=== PATIENT | female | born 1985 | race Caucasian/White ===

== ENCOUNTER → 2016-09-05 | Outpatient (CLI) | payer OTHER ==
[~2016-09-05] MED LIST: AMIT50TA PO; BENA25TA4 PO; E-Z-PAQUE 96% w/w SUSP 176GM BTL As Ordered ONE; EFFE75CA75 PO; GABA300C3 PO; HYDR-3719 PO; HYDR25T PO; IBUP80TA PO; IMIT50TA PO; MEDR1VL IM; MOBI15TA PO; OMEP20CA3 PO; PROZ20CA11 PO; RIBO400T PO; SERO1TAB3 PO; SING10TA32 PO; TOPA25TA10 PO; TRAM50TA2 PO; VENL150C43 PO; VITA-112 PO; ZOFR4SOL PO; [UNRECOGNIZED DRUG - CODE] PO
--- NOTE | 2016-09-05 11:01 | REP ---
Small-bowel follow-through: Transit time of barium to the terminal ileum is seen in its. There is no small bowel hypersecretion, dilatation, or mucosal abnormality. The terminal ileum is evaluated with fluoroscopy and spot filming. The terminal ileum has a normal mucosal pattern. No evidence of luminal narrowing or wall thickening. There are no fistulous tracts. Impression: Normal small bowel follow-through study. If symptomatology persists, consider a followup study in 6 months to a year. Fluoroscopic exposure time is 48 seconds. Fluoroscopic images are performed with last image hold technology resulting in no additional radiation. Signed by Sulaiman Kingsley MD 09/05/2016 10:52 A
== END ==
LOC: M RAD 08:20
PROVIDERS: ATTEND Internal Medicine Gastroenterology
DX: R93.3 Abnormal findings on diagnostic imaging of other parts of digestive tract (principal)

== ENCOUNTER → 2016-12-24 | Outpatient (REF) ==
[~2016-12-24] MED LIST changes: +BENT10CA PO; -E-Z-PAQUE 96% w/w SUSP 176GM BTL As Ordered ONE; +GABA-282 PO; -GABA300C3 PO
== END ==
LOC: M SMT 14:21
PROVIDERS: ATTEND Internal Medicine
DX: Z02.71 Encounter for disability determination (principal)

== ENCOUNTER → 2016-12-24 | Outpatient (REF) ==
--- NOTE | 2016-12-24 22:48 | REP ---
Clinical: Pain and disability. Technique: AP, lateral, coned-down views of the lumbar spine. Findings: Three views of the lumbosacral spine demonstrate satisfactory alignment and lordosis without acute fracture / compression injury or subluxation. Minimal endplate sclerosis and disc space narrowing at L5-S1 cannot be excluded. Impression: Minimal disc space narrowing and L5-S1. No acute fracture / compression injury or subluxation. Signed by George Perez MD 12/24/2016 10:39 P
== END ==
LOC: M SMT 14:24
PROVIDERS: ATTEND Internal Medicine
DX: Z02.71 Encounter for disability determination (principal)

== ENCOUNTER 2017-06-21 15:10 | Emergency (ER) | payer MEDICAID, OTHER ==
[~2017-06-21] VITALS: Ht 157.5 cm; Wt 81.8 kg
[2017-06-21 15:10] VITALS: BP 142/77
[~2017-06-21 15:10] MED LIST changes: +HYDR-3363 PO; -HYDR25T PO; +MUCI1TAB16 PO; +TOPA1TAB PO; -TOPA25TA10 PO; -[UNRECOGNIZED DRUG - CODE] PO
[2017-06-21] MEDS ORDERED: TRAZO50TA FT (15:21)
[2017-06-21] MEDS ORDERED: CLAR10CA3 PO (15:21)
[2017-06-21] MEDS ORDERED: DEPA1TAB PO (15:21)
[2017-06-21] MEDS ORDERED: BACT2OIN10 TOP (16:07)
== END 2017-06-21 16:16 | disposition home or self-care (01) ==
LOC: M ED 15:10
DX: L01.00 Impetigo, unspecified (principal); J45.909 Unspecified asthma, uncomplicated; E03.9 Hypothyroidism, unspecified; F32.9 Major depressive disorder, single episode, unspecified; K21.9 Gastro-esophageal reflux disease without esophagitis; M79.7 Fibromyalgia; G43.909 Migraine, unspecified, not intractable, without status migrainosus; K58.9 Irritable bowel syndrome, unspecified; Z79.899 Other long term (current) drug therapy; Z88.8 Allergy status to other drugs, medicaments and biological substances

== ENCOUNTER → 2017-08-28 | Outpatient (REF) | payer OTHER ==
[2017-08-28 17:49] LABS: INFLUENZA A AMPLIFICATION NEGATIVE (NEGATIVE); INFLUENZA B AMPLIFICATION NEGATIVE (NEGATIVE); RSV AMPLIFICATION NEGATIVE (NEGATIVE)
== END ==
LOC: M LAB REF 16:33
DX: R68.89 Other general symptoms and signs (principal)
CPT/HCPCS: 87631

== ENCOUNTER 2017-09-08 20:12 | Emergency (ER) | payer OTHER ==
[2017-09-08] MEDS: NORCO 5/325MG TABLET (BULK FOR ED) PO (23:04)
[2017-09-08] MEDS: AMOXICILLIN 500 MG CAP PO (23:05)
== END 2017-09-08 23:08 | disposition home or self-care (01) ==
LOC: M ED 20:12
DX: H66.92 Otitis media, unspecified, left ear (principal); J45.909 Unspecified asthma, uncomplicated; E03.9 Hypothyroidism, unspecified; F32.9 Major depressive disorder, single episode, unspecified; Z88.8 Allergy status to other drugs, medicaments and biological substances; Z79.899 Other long term (current) drug therapy
CPT/HCPCS: 99283

== ENCOUNTER 2017-09-29 13:55 | Emergency (ER) | payer OTHER | END 2017-09-29 15:41 | disposition left against medical advice (07) | LOC: M ED 13:55 | DX: M79.609 Pain in unspecified limb (principal); Z53.21 Procedure and treatment not carried out due to patient leaving prior to being seen by health care provider ==

== ENCOUNTER → 2017-12-24 | Outpatient (CLI) | payer OTHER | LOC: M PAIN 15:30 | DX: G89.29 Other chronic pain (principal); G54.6 Phantom limb syndrome with pain; M79.642 Pain in left hand; F31.9 Bipolar disorder, unspecified; F41.9 Anxiety disorder, unspecified; K21.9 Gastro-esophageal reflux disease without esophagitis; M19.90 Unspecified osteoarthritis, unspecified site; J30.2 Other seasonal allergic rhinitis; G43.909 Migraine, unspecified, not intractable, without status migrainosus; M79.7 Fibromyalgia; K58.9 Irritable bowel syndrome, unspecified; Z87.891 Personal history of nicotine dependence; Z79.891 Long term (current) use of opiate analgesic; Z79.899 Other long term (current) drug therapy | CPT/HCPCS: G0463 ==

== ENCOUNTER 2018-01-12 16:23 | Emergency (ER) | payer OTHER ==
[2018-01-12] MEDS: PROMETHAZINE INJ 25 MG/ML VIAL (J2550) IV (17:19)
[2018-01-12] MEDS: NORCO, ANEXSIA 5/325MG TABLET (HYDROcodone/ACETAMINOPHEN) PO (17:54)
== END 2018-01-12 19:00 | disposition home or self-care (01) ==
LOC: M ED 16:23
DX: S93.402A Sprain of unspecified ligament of left ankle, initial encounter (principal); S30.0XXA Contusion of lower back and pelvis, initial encounter; W10.9XXA Fall (on) (from) unspecified stairs and steps, initial encounter; Y92.099 Unspecified place in other non-institutional residence as the place of occurrence of the external cause; Y93.9 Activity, unspecified; Y99.9 Unspecified external cause status; J45.909 Unspecified asthma, uncomplicated; M79.7 Fibromyalgia; K21.9 Gastro-esophageal reflux disease without esophagitis; Z79.899 Other long term (current) drug therapy; Z88.8 Allergy status to other drugs, medicaments and biological substances
CPT/HCPCS: 72110

== ENCOUNTER → 2018-02-17 | Outpatient (REF) | payer OTHER ==
[2018-02-17 22:01] LABS: APPEARANCE, URINE CLOUDY (CLEAR); BACTERIA, URINE AUTO 1+ (NEGATIVE); BILIRUBIN, URINE AUTO NEGATIVE (NEGATIVE); BLOOD, URINE BLOOD NEGATIVE (NEGATIVE); COLOR, URINE AMBER (YELLOW); GLUCOSE, URINE (UA) AUTO NEGATIVE (NEGATIVE); KETONE, URINE AUTO NEGATIVE (NEGATIVE); LEUKOCYTE ESTERASE, URINE AUTO NEGATIVE (NEGATIVE); NITRITE, URINE AUTO NEGATIVE (NEGATIVE); PROTEIN, URINE AUTO NEGATIVE (NEGATIVE); RBC, URINE AUTO 2 /HPF (0-3); SPECIFIC GRAVITY URINE AUTO 1.018 (1.002-1.035); SQUAMOUS EPITHELIAL CELL UR AU 1 /HPF (0-6); UROBILINOGEN, URINE AUTO 0.2 mg/dL (0.0-2.0); WBC, URINE AUTO 1 /HPF (0-3)
== END ==
LOC: M LAB REF 09:08
DX: N39.0 Urinary tract infection, site not specified (principal)
CPT/HCPCS: 81001

== ENCOUNTER → 2018-02-19 | Outpatient (CLI) | payer OTHER ==
[2018-02-19 17:05] LABS: ALBUMIN 4.1 GM/DL (3.2-5.2); ALBUMIN/GLOBULIN RATIO 1.17 (1.00-1.93); ALKALINE PHOSPHATASE 67 U/L (45-117); ALT/SGPT 23 U/L (12-78); ANION GAP 7 MEQ/L (8-16); AST/SGOT 9 U/L (7-37); BILIRUBIN,TOTAL 0.2 MG/DL (0.2-1.0); BLOOD UREA NITROGEN 5 MG/DL (7-18); CALCIUM LEVEL 9.2 MG/DL (8.5-10.1); CARBON DIOXIDE LEVEL 26 MEQ/L (21-32); CHLORIDE LEVEL 108 MEQ/L (98-107); CREATININE FOR GFR 1.08 MG/DL (0.55-1.30); FREE T4 0.82 NG/DL (0.76-1.46); GLOMERULAR FILTRATION RATE > 60.0 (>60); GLUCOSE, FASTING 74 MG/DL (70-100); POTASSIUM SERUM 4.8 MEQ/L (3.5-5.1); SODIUM LEVEL 141 MEQ/L (136-145); TOTAL PROTEIN 7.6 GM/DL (6.4-8.2)
[2018-02-19 17:11] LABS: BASO # 0.1 10^3/uL (0.0-0.2); BASO % 0.5 % (0.0-1.0); EOS # 0.1 10^3/uL (0.0-0.50); EOS % 0.9 % (0.0-3.0); HEMATOCRIT 42.5 % (36.0-47.0); HEMOGLOBIN 13.8 g/dl (12.0-15.5); IMMATURE GRANULOCYTE % 0.6 % (0-3.0); LYMPH # 3.6 10^3/uL (1.5-4.5); LYMPH % 35.4 % (24.0-44.0); MEAN CORPUSCULAR HEMOGLOBIN 27.3 pg (27.0-33.0); MEAN CORPUSCULAR HGB CONC 32.5 g/dl (32.0-36.5); MONO # 0.6 10^3/uL (0.0-0.8); MONO % 6.3 % (0.0-5.0); NEUTROPHILS # 5.7 10^3/uL (1.8-7.7); NEUTROPHILS % 56.3 % (36.0-66.0); PLATELET COUNT, AUTOMATED 282 10^3/uL (150-450); RED BLOOD COUNT 5.06 10^6/uL (4.00-5.40); RED CELL DISTRIBUTION WIDTH 13.6 % (11.5-14.5); WHITE BLOOD COUNT 10.1 10^3/uL (4.0-10.0)
[2018-02-23 00:09] LABS: EBV AB TO NUCLEAR ANTIGEN <18.0 U/mL (0.0-17.9)
[2018-02-23 00:09] LABS: EBV VIRAL CAPSID AG IgM <36.0 U/mL (0.0-35.9)
== END ==
LOC: M WUC 14:09
DX: J02.9 Acute pharyngitis, unspecified (principal); M79.1 Myalgia
CPT/HCPCS: 84443

== ENCOUNTER 2018-04-29 20:32 | Inpatient (IN) | payer MEDICAID, OTHER, SELFPAY ==
[2018-04-29] MEDS: NS 1,000 ML IV (21:15)
[2018-04-29 21:25] LABS: OSMOLALITY SERUM 291 MOSM/KG (275-295)
[2018-04-29 21:36] LABS: ACETAMINOPHEN LEVEL < 2.0 UG/ML (10.0-30.0); ETHYL ALCOHOL (ETHANOL) 0.004 % (0.000-0.010)
[2018-04-29] MEDS: MORPHINE 2 MG/ML 1ML SYRINGE (J2270) IV (21:59)
[2018-04-29 22:03] LABS: BASO % 0.3 % (0.0-1.0); EOS # 0.1 10^3/uL (0.0-0.50); EOS % 0.8 % (0.0-3.0); HEMATOCRIT 44.4 % (36.0-47.0); HEMOGLOBIN 14.8 g/dl (12.0-15.5); LYMPH # 2.4 10^3/uL (1.5-4.5); LYMPH % 20.5 % (24.0-44.0); MEAN CORPUSCULAR HEMOGLOBIN 27.7 pg (27.0-33.0); MEAN CORPUSCULAR HGB CONC 33.3 g/dl (32.0-36.5); MEAN CORPUSCULAR VOLUME 83.1 fl (80.0-96.0); MONO # 0.5 10^3/uL (0.0-0.8); MONO % 4.6 % (0.0-5.0); NEUTROPHILS # 8.5 10^3/uL (1.8-7.7); NEUTROPHILS % 72.8 % (36.0-66.0); PLATELET COUNT, AUTOMATED 243 10^3/uL (150-450); RED BLOOD COUNT 5.34 10^6/uL (4.00-5.40); RED CELL DISTRIBUTION WIDTH 15.3 % (11.5-14.5); WHITE BLOOD COUNT 11.6 10^3/uL (4.0-10.0)
[2018-04-29 22:07] LABS: CONTROL LINE HCG INT CTR LINE PRESENT; HCG, SERUM QUALITATIVE NEGATIVE (NEGATIVE); INR 0.94; PROTHROMBIN TIME 12.7 SECONDS (12.1-14.4)
[2018-04-29 22:08] LABS: PARTIAL THROMBOPLASTIN TIME 31.5 SECONDS (25.4-37.6)
[2018-04-29 22:09] LABS: KETONE, URINE AUTO RFX TRACE mg/dL (NEGATIVE); LEUKOCYTE ESTERASE UR AUTO RFX NEGATIVE (NEGATIVE); NITRITE, URINE AUTO RFX NEGATIVE (NEGATIVE); RBC, URINE AUTO RFX 2 /HPF (0-3); SPECIFIC GRAVITY UR AUTO RFX 1.008 (1.002-1.035); SQUAM EPITHELIAL CELL UR AURFX 0 /HPF (0-6); WBC, URINE AUTO RFX 0 /HPF (0-3)
[2018-04-29 22:26] LABS: ALBUMIN 4.3 GM/DL (3.2-5.2); ALKALINE PHOSPHATASE 80 U/L (45-117); ALT/SGPT 27 U/L (12-78); AMYLASE 45 U/L (25-115); ANION GAP 10 MEQ/L (8-16); AST/SGOT 14 U/L (7-37); BILIRUBIN,DIRECT < 0.1 MG/DL (0.0-0.2); BILIRUBIN,TOTAL 0.2 MG/DL (0.2-1.0); BLOOD UREA NITROGEN 6 MG/DL (7-18); CARBON DIOXIDE LEVEL 25 MEQ/L (21-32); CHLORIDE LEVEL 107 MEQ/L (98-107); CK-MB VALUE MASS < 1.0 NG/ML (<3.6); CPK CREATINE PHOSPHOKINASE 80 U/L (26-192); CREATININE FOR GFR 0.94 MG/DL (0.55-1.30); GLOMERULAR FILTRATION RATE > 60.0 (>60); GLUCOSE, FASTING 81 MG/DL (70-100); LIPASE 183 U/L (73-393); MB/CK RELATIVE INDEX 1.25 (< OR =4); POTASSIUM SERUM 3.8 MEQ/L (3.5-5.1); SODIUM LEVEL 142 MEQ/L (136-145); TOTAL PROTEIN 7.6 GM/DL (6.4-8.2); TROPONIN I < 0.02 NG/ML (< 0.10)
[2018-04-29 22:33] LABS: AMPHETAMINES LEVEL URINE NEGATIVE (NEGATIVE); BARBITURATES URINE NEGATIVE (NEGATIVE); BENZODIAZEPINES URINE NEGATIVE (NEGATIVE); CANNABINOIDS URINE NEGATIVE (NEGATIVE); COCAINE METABOLITE URINE NEGATIVE (NEGATIVE); METHADONE URINE NEGATIVE (NEGATIVE); OPIATES URINE NEGATIVE (NEGATIVE); PHENCYCLIDINE URINE NEGATIVE (NEGATIVE)
[2018-04-29] MEDS ORDERED: ISOVUE-370 76% 100ML VIAL (Q9967) As Ordered (22:33)
[2018-04-29 22:35] LABS: LACTIC ACID SEPSIS PROTOCOL 1.1 MMOL/L (0.4-2.0)
[2018-04-30] MEDS: KETOROLAC 30 MG/ML VIAL (J1885) IV
[2018-04-30] MEDS ORDERED: MAALOX 30 ML SUSP *UDC PO (02:45)
[2018-04-30] MEDS ORDERED: diphenhydrAMINE 50 MG CAP PO (02:45)
[2018-04-30] MEDS ORDERED: MOM 30ML SUSPENSION UDC PO (02:45)
[2018-04-30] MEDS: NICOTINE 21MG/24HR 1 EA TRANSDERMAL TD (08:08)
[2018-04-30] MEDS ORDERED: NORCO, ANEXSIA 5/325MG TABLET (HYDROcodone/ACETAMINOPHEN) PO (11:30)
[2018-04-30] MEDS ORDERED: ALBUTEROL 90 MCG/ACT 8GM HFA INHALER INH (11:30)
[2018-04-30] MEDS: OMEPRAZOLE 20 MG CAP PO ×2 (12:52→21:37)
[2018-04-30] MEDS: busPIRone 5 MG TAB PO ×2 (13:23→21:37)
[2018-04-30] MEDS: VENLAFAXINE **XR** 75MG CAPSULE PO (13:23)
[2018-04-30] MEDS: GABAPENTIN 300 MG CAP PO ×2 (16:12→21:37)
[2018-04-30] MEDS ORDERED: LURASIDONE HCL 40 MG TAB (LATUDA) PO ×2 (18:00→21:00)
[2018-04-30] MEDS: MONTELUKAST 10 MG TAB PO (21:35)
[2018-04-30] MEDS: LURASIDONE HCL 40 MG TAB (LATUDA) PO (21:36)
[2018-04-30] MEDS: hydrOXYzine 50 MG TAB PO (21:36)
[2018-04-30] MEDS: traZODone 50 MG TAB PO (21:37)
[2018-05-01 07:50] LABS: HEMATOCRIT 40.4 % (36.0-47.0); HEMOGLOBIN 13.4 g/dl (12.0-15.5); MEAN CORPUSCULAR HEMOGLOBIN 27.2 pg (27.0-33.0); MEAN CORPUSCULAR HGB CONC 33.2 g/dl (32.0-36.5); MEAN CORPUSCULAR VOLUME 81.9 fl (80.0-96.0); PLATELET COUNT, AUTOMATED 218 10^3/uL (150-450); RED BLOOD COUNT 4.93 10^6/uL (4.00-5.40); RED CELL DISTRIBUTION WIDTH 15.3 % (11.5-14.5); WHITE BLOOD COUNT 10.1 10^3/uL (4.0-10.0)
[2018-05-01] MEDS: NICOTINE 21MG/24HR 1 EA TRANSDERMAL TD (08:11)
[2018-05-01] MEDS: VENLAFAXINE **XR** 75MG CAPSULE PO (08:12)
[2018-05-01] MEDS: busPIRone 5 MG TAB PO ×2 (08:12→21:00)
[2018-05-01] MEDS: GABAPENTIN 300 MG CAP PO ×3 (08:12→21:00)
[2018-05-01] MEDS: OMEPRAZOLE 20 MG CAP PO ×2 (08:12→21:00)
[2018-05-01] MEDS: MONTELUKAST 10 MG TAB PO (21:00)
[2018-05-01] MEDS: hydrOXYzine 50 MG TAB PO (22:50)
[2018-05-01] MEDS: traZODone 50 MG TAB PO (22:50)
[2018-05-01] MEDS: LURASIDONE HCL 40 MG TAB (LATUDA) PO (22:51)
[2018-05-02] MEDS: VENLAFAXINE **XR** 75MG CAPSULE PO (08:06)
[2018-05-02] MEDS: GABAPENTIN 300 MG CAP PO ×3 (08:06→20:46)
[2018-05-02] MEDS: NICOTINE 21MG/24HR 1 EA TRANSDERMAL TD (08:06)
[2018-05-02] MEDS: busPIRone 5 MG TAB PO ×2 (08:06→20:46)
[2018-05-02] MEDS: OMEPRAZOLE 20 MG CAP PO ×2 (08:07→20:46)
[2018-05-02] MEDS: IBUPROFEN 400 MG TAB PO (12:00)
[2018-05-02] MEDS: ACETAMINOPHEN TAB 650MG DOSE (2X325MG) PO (15:48)
[2018-05-02] MEDS: MONTELUKAST 10 MG TAB PO (20:46)
[2018-05-02] MEDS: traZODone 50 MG TAB PO (22:34)
[2018-05-02] MEDS: LURASIDONE HCL 40 MG TAB (LATUDA) PO (22:34)
[2018-05-02] MEDS: hydrOXYzine 50 MG TAB PO (22:34)
[2018-05-03] MEDS: NICOTINE 21MG/24HR 1 EA TRANSDERMAL TD (08:44)
[2018-05-03] MEDS: busPIRone 5 MG TAB PO (08:45)
[2018-05-03] MEDS: VENLAFAXINE **XR** 75MG CAPSULE PO (08:45)
[2018-05-03] MEDS: OMEPRAZOLE 20 MG CAP PO (08:45)
[2018-05-03] MEDS: GABAPENTIN 300 MG CAP PO (08:46)
== END 2018-05-03 14:45 | disposition home or self-care (01) | DRG 753 ==
LOC: M PSY 05-02 23:18 → M ED INP 04-30 02:33 → M ED 20:32 → M PSY 04-30 03:39
PROVIDERS: Psychiatry & Neurology Psychiatry
DX: F31.9 Bipolar disorder, unspecified (principal); E27.8 Other specified disorders of adrenal gland; R45.851 Suicidal ideations; F43.10 Post-traumatic stress disorder, unspecified; F41.1 Generalized anxiety disorder; Z79.899 Other long term (current) drug therapy; Z88.8 Allergy status to other drugs, medicaments and biological substances; K21.9 Gastro-esophageal reflux disease without esophagitis; G47.33 Obstructive sleep apnea (adult) (pediatric); J45.909 Unspecified asthma, uncomplicated; G89.29 Other chronic pain; M79.7 Fibromyalgia; F17.200 Nicotine dependence, unspecified, uncomplicated; D72.829 Elevated white blood cell count, unspecified

== ENCOUNTER 2018-05-05 09:23 | Emergency (ER) | payer MEDICAID | END 2018-05-05 11:07 | disposition home or self-care (01) | LOC: M ED 09:23 | DX: J45.909 Unspecified asthma, uncomplicated (principal); J20.9 Acute bronchitis, unspecified; K21.9 Gastro-esophageal reflux disease without esophagitis; F31.9 Bipolar disorder, unspecified; F41.9 Anxiety disorder, unspecified; F43.10 Post-traumatic stress disorder, unspecified; Z79.899 Other long term (current) drug therapy; Z79.3 Long term (current) use of hormonal contraceptives; Z88.5 Allergy status to narcotic agent; F17.210 Nicotine dependence, cigarettes, uncomplicated | CPT/HCPCS: 99283 ==

== ENCOUNTER 2018-07-14 09:44 | Emergency (ER) | payer OTHER, MEDICAID ==
[~2018-07-14] VITALS: Ht 160 cm; Wt 81.8 kg
[~2018-07-14 09:44] MED LIST changes: +AMOX875T PO; +BACT2OIN10 TOP; +BUSP15TA47 PO; +CLAR10CA3 PO; +DEPA1TAB PO; +DEPO150I IM; +EFFE75CA2 PO; -EFFE75CA75 PO; +EXCETAB49 PO; +GABA-1171 PO; -GABA-282 PO; +GABA-843 PO; +GABA-845 PO; +HYDR-3713 PO; +IBUPOTC PO; +LATU1TAB PO; +LATU40TA PO; +LATU80TA PO; +MONT10TA2 PO; +NICO21PAT TD; +NORC1TAB4 PO; +NORCOTAB PO; +OXYC1TAB23 PO; +TRAZ-160 PO; +TRAZO50TA FT; +VENL100T PO; +VENL75CA2 PO; +VENTAER INH; +VITA100T98 PO
[2018-07-14] MEDS ORDERED: ZIPR20CA13 (09:57)
[2018-07-14] MEDS ORDERED: HYDR-3713 (09:57)
[2018-07-14] MEDS ORDERED: KETOROLAC 30 MG/ML VIAL (J1885) IV ONE (10:30)
[2018-07-14] MEDS ORDERED: METOCLOPRAMIDE INJ 10MG/2ML VIAL (J2765) IV ONE (10:30)
[2018-07-14] MEDS ORDERED: NS 1,000 ML IV ONE (10:30)
--- NOTE | 2018-07-14 10:42 | REP ---
Chest two views HISTORY: Abdominal pain Comparison: 12/08/2013 The lungs are clear. The heart is normal in size. The pulmonary vasculature is normal in appearance. The bony structure is intact. IMPRESSION: No acute disease. Electronically Signed by Kj Ceballos MD 07/14/2018 10:34 A
[2018-07-14 10:43] LABS: BASO % 0.4 % (0.0-1.0); EOS # 0.1 10^3/uL (0.0-0.50); EOS % 0.5 % (0.0-3.0); HEMATOCRIT 45.5 % (36.0-47.0); HEMOGLOBIN 15.2 g/dl (12.0-15.5); LYMPH % 28.3 % (24.0-44.0); MEAN CORPUSCULAR HEMOGLOBIN 28.8 pg (27.0-33.0); MEAN CORPUSCULAR HGB CONC 33.4 g/dl (32.0-36.5); MEAN CORPUSCULAR VOLUME 86.3 fl (80.0-96.0); MONO # 0.5 10^3/uL (0.0-0.8); MONO % 4.5 % (0.0-5.0); NEUTROPHILS % 65.7 % (36.0-66.0); PLATELET COUNT, AUTOMATED 264 10^3/uL (150-450); RED BLOOD COUNT 5.27 10^6/uL (4.00-5.40); WHITE BLOOD COUNT 10.6 10^3/uL (4.0-10.0)
[2018-07-14 11:50] VITALS: BP 120/74
[2018-07-14 12:00] LABS: BLOOD UREA NITROGEN 7 MG/DL (7-18); CALCIUM LEVEL 8.9 MG/DL (8.5-10.1); CARBON DIOXIDE LEVEL 26 MEQ/L (21-32); CHLORIDE LEVEL 107 MEQ/L (98-107); CREATININE FOR GFR 0.96 MG/DL (0.55-1.30); GLOMERULAR FILTRATION RATE > 60.0 (>60); GLUCOSE, FASTING 71 MG/DL (70-100); POTASSIUM SERUM 4.1 MEQ/L (3.5-5.1); SODIUM LEVEL 140 MEQ/L (136-145)
== END 2018-07-14 12:15 | disposition home or self-care (01) ==
LOC: M ED 09:44
DX: Z77.098 Contact with and (suspected) exposure to other hazardous, chiefly nonmedicinal, chemicals (principal); M79.7 Fibromyalgia; K21.9 Gastro-esophageal reflux disease without esophagitis; F31.9 Bipolar disorder, unspecified; F43.10 Post-traumatic stress disorder, unspecified; Z79.899 Other long term (current) drug therapy; Z88.8 Allergy status to other drugs, medicaments and biological substances; F17.210 Nicotine dependence, cigarettes, uncomplicated
CPT/HCPCS: 71046; 80048; 85025; 94760; 96361; 96374; 96375; 99284; J1885; J2765

== ENCOUNTER 2018-08-08 10:43 | Emergency (ER) | payer MEDICAID, OTHER ==
[~2018-08-08] VITALS: Ht 160 cm; Wt 78.6 kg
[~2018-08-08 10:43] MED LIST changes: +HYDR-3713; +ZIPR20CA13
[2018-08-08] MEDS ORDERED: MONT10TA2 (10:50)
[2018-08-08] MEDS ORDERED: diphenhydrAMINE INJ 50MG/ML VIAL (J1200) IV STA (10:59)
[2018-08-08] MEDS ORDERED: NS 1,000 ML IV ONE (11:00)
[2018-08-08] MEDS ORDERED: METOCLOPRAMIDE INJ 10MG/2ML VIAL (J2765) IV ONE (11:00)
[2018-08-08] MEDS ORDERED: KETOROLAC 30 MG/ML VIAL (J1885) IV ONE (11:00)
[2018-08-08 12:42] VITALS: BP 118/66
== END 2018-08-08 12:47 | disposition home or self-care (01) ==
LOC: M ED 10:43
DX: G43.909 Migraine, unspecified, not intractable, without status migrainosus (principal); M79.7 Fibromyalgia; F31.9 Bipolar disorder, unspecified; F43.10 Post-traumatic stress disorder, unspecified; Z79.899 Other long term (current) drug therapy; Z88.8 Allergy status to other drugs, medicaments and biological substances; F17.210 Nicotine dependence, cigarettes, uncomplicated
CPT/HCPCS: 96361; 96374; 96375; 99284; J1200; J1885; J2765

== ENCOUNTER 2018-08-20 06:57 | Emergency (ER) | payer MEDICAID ==
[~2018-08-20] VITALS: Ht 160 cm; Wt 78.6 kg
[~2018-08-20 06:57] MED LIST changes: +MONT10TA2
[2018-08-20] MEDS ORDERED: ZIPR20CA13 PO (07:06)
[2018-08-20] MEDS ORDERED: NORCO, ANEXSIA 5/325MG TABLET (HYDROcodone/ACETAMINOPHEN) PO ONE (07:45)
--- NOTE | 2018-08-20 07:57 | REP ---
Head CT without contrast: History: Injury in a fall hitting the posterior cranium. Headache. Comparison study: Comparison head CT study April 29, 2018. CT findings: Bone window settings demonstrate an intact bony calvarium. There is no evidence of skull fracture or incidental bony calvarial lesion. The visualized paranasal sinuses appear clear. No intraorbital abnormality is seen. On soft tissue window setting images; the lateral, third, and fourth ventricles are normal in size and position. Perkins-white differentiation pattern is normal above and below the tentorium. There are is no evidence of intracranial hemorrhage. No mass, edema, infarction, or midline shift is seen. No extra-axial fluid collection is appreciated. Impression: Negative noncontrast head CT. Electronically Signed by Mulugeta Wyatt MD 08/20/2018 07:49 A
--- NOTE | 2018-08-20 07:58 | REP ---
CT study of the cervical spine without contrast: History: Injury in a fall. Pain. Technique: Helical scanning is acquired and overlapping 2 mm high resolution axial images were generated and reviewed at bone and soft tissue window settings. Coronal and sagittal multiplanar re-formations images are generated. CT findings: There is no evidence of cervical spine element fracture. No skull base fracture is seen. Cervical vertebral body heights are preserved. Alignment is normal. Facet joints are normally aligned bilaterally at each cervical level on multiplanar re-formations images. There is no evidence of intraspinal or paraspinal hematoma. No extra vertebral abnormality is seen. Impression: Negative CT study of the cervical spine without contrast. No fracture seen. Electronically Signed by Mulugeta Wyatt MD 08/20/2018 07:51 A
--- NOTE | 2018-08-20 08:01 | REP ---
CT study of the lumbar spine without contrast: History: The injury in a fall. Pain. Technique: Helical scanning is acquired and overlapping 4 mm high resolution axial images were generated and reviewed at bone and soft tissue window settings. Coronal and sagittal multiplanar re-formations images are generated. CT findings: There is no evidence of lumbar spine element fracture. No fracture is seen. Lumbar vertebral body heights are preserved. Alignment is normal. Facet joints are normally aligned bilaterally at each lumbar level on multiplanar re-formations images. There is no evidence of intraspinal or paraspinal hematoma. No extra vertebral abnormality is seen. Impression: Negative CT study of the lumbar spine without contrast. No fracture seen. Electronically Signed by Mulugeta Wyatt MD 08/20/2018 07:53 A
[2018-08-20] MEDS ORDERED: IBUP80TA PO (08:09)
[2018-08-20 08:13] VITALS: BP 114/71
== END 2018-08-20 08:33 | disposition home or self-care (01) ==
LOC: M ED 06:57
DX: S20.229A Contusion of unspecified back wall of thorax, initial encounter (principal); S09.90XA Unspecified injury of head, initial encounter; W00.9XXA Unspecified fall due to ice and snow, initial encounter; Y92.410 Unspecified street and highway as the place of occurrence of the external cause; M79.7 Fibromyalgia; J45.909 Unspecified asthma, uncomplicated; K21.9 Gastro-esophageal reflux disease without esophagitis; F31.9 Bipolar disorder, unspecified; F43.10 Post-traumatic stress disorder, unspecified; F41.9 Anxiety disorder, unspecified; F17.200 Nicotine dependence, unspecified, uncomplicated; Z79.899 Other long term (current) drug therapy; Z88.8 Allergy status to other drugs, medicaments and biological substances

== ENCOUNTER 2018-09-13 10:02 | Emergency (ER) | payer OTHER, MEDICAID ==
[~2018-09-13] VITALS: Ht 160 cm; Wt 77.3 kg
[~2018-09-13 10:02] MED LIST changes: +ZIPR20CA13 PO
[2018-09-13] MEDS ORDERED: EFFE75CA2 (10:24)
[2018-09-13 10:53] VITALS: BP 117/75
[2018-09-13] MEDS ORDERED: IBUPROFEN 800 MG TAB PO ONE (11:00)
--- NOTE | 2018-09-13 11:18 | REP ---
RIGHT WRIST, FOUR VIEWS: HISTORY: Injury. There is no acute fracture or dislocation. The joint spaces are normal in appearance. IMPRESSION: There is no acute fracture or dislocation. Electronically Signed by Kj Ceballos MD 09/13/2018 11:27 A
== END 2018-09-13 11:06 | disposition home or self-care (01) ==
LOC: M ED 10:02
DX: S69.91XA Unspecified injury of right wrist, hand and finger(s), initial encounter (principal); W00.0XXA Fall on same level due to ice and snow, initial encounter; Y92.89 Other specified places as the place of occurrence of the external cause; Y99.0 Civilian activity done for income or pay; R51 Headache; K21.9 Gastro-esophageal reflux disease without esophagitis; M54.9 Dorsalgia, unspecified; F41.9 Anxiety disorder, unspecified; F31.9 Bipolar disorder, unspecified; F43.10 Post-traumatic stress disorder, unspecified; F17.200 Nicotine dependence, unspecified, uncomplicated; Z88.8 Allergy status to other drugs, medicaments and biological substances; Z79.899 Other long term (current) drug therapy; Z79.3 Long term (current) use of hormonal contraceptives

== ENCOUNTER → 2018-09-23 | Outpatient (CLI) | payer MEDICAID ==
[~2018-09-23] MED LIST changes: +EFFE75CA2
--- NOTE | 2018-09-23 17:07 | REP ---
Right small finger series: Four views. History: Injury. Findings: Four views of the right small finger demonstrate a dressing in place over the fourth and fifth digits. No fracture is seen. No opaque foreign body is appreciated. Impression: Bandage or dressing artifact. No fracture or opaque foreign body seen. Electronically Signed by Mulugeta Wyatt MD 09/24/2018 08:30 A
== END ==
LOC: M RAD 16:44
PROVIDERS: ATTEND Physician Assistant
DX: S69.91XA Unspecified injury of right wrist, hand and finger(s), initial encounter (principal); X58.XXXA Exposure to other specified factors, initial encounter; Y92.9 Unspecified place or not applicable

== ENCOUNTER → 2018-10-06 | Outpatient (REF) | payer MEDICAID ==
[~2018-10-06] MED LIST changes: +CEPH500C PO; +ZOLP5TAB PO
== END ==
LOC: M LAB REF 17:53
PROVIDERS: ATTEND Physician Assistant Medical
DX: R19.7 Diarrhea, unspecified (principal)

== ENCOUNTER 2018-10-31 09:47 | Emergency (ER) | payer OTHER, MEDICAID ==
[~2018-10-31] VITALS: Ht 160 cm; Wt 78.2 kg
[2018-10-31 09:47] VITALS: BP 128/82
[~2018-10-31 09:47] MED LIST changes: +HYDR-3715 PO; -NORC1TAB4 PO; +NORC1TAB7 PO; -NORCOTAB PO
[2018-10-31] MEDS ORDERED: VENL37.598 (09:53)
[2018-10-31] MEDS ORDERED: VENL150C43 (09:53)
[2018-10-31] MEDS ORDERED: MAXI0.1S4 OD (10:12)
[2018-10-31] MEDS ORDERED: TETRACAINE 0.5% OPHTH SOLN 4ML OD ONE (10:15)
[2018-10-31] MEDS ORDERED: ACETAMINOPHEN 500 MG TAB PO ONE (10:45)
== END 2018-10-31 10:46 | disposition home or self-care (01) ==
LOC: M ED 09:47
DX: H57.11 Ocular pain, right eye (principal); Z77.098 Contact with and (suspected) exposure to other hazardous, chiefly nonmedicinal, chemicals; J45.909 Unspecified asthma, uncomplicated; F31.9 Bipolar disorder, unspecified; F33.9 Major depressive disorder, recurrent, unspecified; F41.9 Anxiety disorder, unspecified; F43.10 Post-traumatic stress disorder, unspecified; K21.9 Gastro-esophageal reflux disease without esophagitis; M79.7 Fibromyalgia; Z79.899 Other long term (current) drug therapy; Z88.8 Allergy status to other drugs, medicaments and biological substances

== ENCOUNTER → 2019-01-14 | Outpatient (REF) | payer OTHER ==
[~2019-01-14] MED LIST changes: +MAXI0.1S4 OD; -TRAZ-160 PO; +TRAZ-252 PO; +TRAZ1TAB10 FT; -TRAZO50TA FT; +VENL150C43; +VENL37.598
== END ==
LOC: M LAB REF 14:53
PROVIDERS: ATTEND Physician Assistant
DX: R30.0 Dysuria (principal)

== ENCOUNTER 2019-01-21 22:22 | Emergency (ER) | payer MEDICAID, OTHER ==
[~2019-01-21] VITALS: Ht 160 cm; Wt 75.0 kg
[2019-01-21 22:22] VITALS: BP 121/67
[~2019-01-21 22:22] MED LIST changes: +OMEP1CAP73 PO; -OMEP20CA3 PO
[2019-05-13] MEDS ORDERED: RIBO400T PO (13:01)
[2019-05-13] MEDS ORDERED: MELA10TA PO (13:01)
[2019-05-13] MEDS ORDERED: IMIT50TA PO (13:01)
[2019-05-13] MEDS ORDERED: BENA25CA4 PO (13:01)
== END 2019-01-21 22:56 | disposition left against medical advice (07) ==
LOC: M ED 22:22
DX: R51 Headache (principal); Z53.21 Procedure and treatment not carried out due to patient leaving prior to being seen by health care provider

== ENCOUNTER 2019-05-27 11:43 | Day surgery (SDC) | payer MEDICAID, OTHER ==
[~2019-05-27] VITALS: Ht 160 cm; Wt 73.9 kg
[~2019-05-27 11:43] MED LIST changes: +BENA25CA4 PO; +MELA10TA PO; +NS 1,000 ML IV ONE; -OMEP1CAP73 PO; +OMEP20CA4 PO
[2019-05-27] MEDS ORDERED: fentaNYL 100 MCG/2 ML INJECTION (J3010) As Ordered ONE (12:10)
[2019-05-27] MEDS ORDERED: PROPOFOL 500 MG/50 ML VIAL As Ordered ONE (12:11)
[2019-05-27] MEDS ORDERED: LIDOCAINE 2% INJ 100 MG/5 ML SDV (FOR ANES.) As Ordered ONE (12:58)
--- NOTE | 2019-05-27 13:26 | ROOR ---
Patient Name: Melba Hutchinson Procedure Date: 05/27/2019 12:54 PM Date of : 1985 Age: 33 Room: [facility] Gender: Female Note Status: Finalized Procedure: Upper GI endoscopy Indications: Abnormal CT of the GI tract Providers: Filemon VILLAREAL MD Referring MD: 1. No Referring Physician 1. No Referring Physician, Admin. Requesting Provider: Medicines: Monitored Anesthesia Care Complications: No immediate complications. Procedure: Pre-Anesthesia Assessment: - The heart rate, respiratory rate, oxygen saturations, blood pressure, adequacy of pulmonary ventilation, and response to care were monitored throughout the procedure. The Endoscope was introduced through the mouth, and advanced to the second part of duodenum. The upper GI endoscopy was accomplished without difficulty. The patient tolerated the procedure well. Findings: The esophagus was normal. The stomach was normal. The examined duodenum was normal. Impression: - Normal esophagus. - Normal stomach. - Normal examined duodenum. - No specimens collected. Recommendation: - Observe patient's clinical course. Filemon Villareal MD Filemon VILLAREAL MD 05/27/2019 1:25:57 PM Electronically signed by Filemon VILLAREAL MD Number of Addenda: 0 Note Initiated On: 05/27/2019 12:54 PM Estimated Blood Loss: Estimated blood loss: none.
--- NOTE | 2019-05-27 13:33 | ROOR ---
Patient Name: Melba Hutchinson Procedure Date: 05/27/2019 12:57 PM Date of : 1985 Age: 33 Room: [facility] Gender: Female Note Status: Finalized Procedure: Colonoscopy Indications: Irritable bowel syndrome with constipation, Constipation Providers: Filemon VILLAREAL MD Referring MD: 1. No Referring Physician 1. No Referring Physician, Admin. Requesting Provider: Medicines: Monitored Anesthesia Care Complications: No immediate complications. Procedure: Pre-Anesthesia Assessment: - The heart rate, respiratory rate, oxygen saturations, blood pressure, adequacy of pulmonary ventilation, and response to care were monitored throughout the procedure. The Colonoscope was introduced through the anus and advanced to 10 cm into the ileum. The colonoscopy was performed without difficulty. The patient tolerated the procedure well. The quality of the bowel preparation was good. Findings: The perianal and digital rectal examinations were normal. A diminutive polyp was found in the recto-sigmoid colon. The polyp was sessile. The polyp was removed with a cold snare. Resection and retrieval were complete. Retroflexion in the right colon was performed. The exam was otherwise normal throughout the examined colon. The terminal ileum appeared normal. Impression: - One diminutive polyp at the recto-sigmoid colon, removed with a cold snare. Resected and retrieved. - The colon is otherwise normal. - The examined portion of the ileum (>10 cm) was normal. Recommendation: - Continue present medications. - Continue Lactulose 15 -30 ml two to three times a day for chronic constipation/irritable bowel with constipation. Filemon Villareal MD Filemon VILLAREAL MD 05/27/2019 1:32:54 PM Electronically signed by Filemon VILLAREAL MD Number of Addenda: 0 Note Initiated On: 05/27/2019 12:57 PM Estimated Blood Loss: Estimated blood loss: none.
[2019-05-27 13:55] VITALS: BP 115/58
== END 2019-05-27 14:42 | disposition home or self-care (01) ==
LOC: M OPP 11:43
PROVIDERS: ATTEND Internal Medicine Gastroenterology
DX: K63.5 Polyp of colon (principal); K58.1 Irritable bowel syndrome with constipation; R93.3 Abnormal findings on diagnostic imaging of other parts of digestive tract; M79.7 Fibromyalgia; F17.210 Nicotine dependence, cigarettes, uncomplicated; Z79.899 Other long term (current) drug therapy; Z88.8 Allergy status to other drugs, medicaments and biological substances
CPT/HCPCS: 43235; 45385; 88305; J3010

== ENCOUNTER 2019-07-13 21:20 | Emergency (ER) | payer OTHER ==
[~2019-07-13] VITALS: Ht 160 cm; Wt 75.9 kg
[~2019-07-13 21:20] MED LIST changes: -NS 1,000 ML IV ONE; +OMEP-172 PO; -OMEP20CA4 PO
[2019-07-13 21:52] LABS: HEMATOCRIT 48.2 % (36.0-47.0); HEMOGLOBIN 15.9 g/dl (12.0-15.5); MEAN CORPUSCULAR HEMOGLOBIN 29.8 pg (27.0-33.0); MEAN CORPUSCULAR VOLUME 90.4 fl (80.0-96.0); PLATELET COUNT, AUTOMATED 239 10^3/uL (150-450); RED BLOOD COUNT 5.33 10^6/uL (4.00-5.40); WHITE BLOOD COUNT 12.9 10^3/uL (4.0-10.0)
[2019-07-13 22:09] LABS: HCG, SERUM QUALITATIVE NEGATIVE (NEGATIVE)
[2019-07-13 22:25] LABS: AMPHETAMINES LEVEL URINE NEGATIVE (NEGATIVE); BARBITURATES URINE NEGATIVE (NEGATIVE); BENZODIAZEPINES URINE NEGATIVE (NEGATIVE); CANNABINOIDS URINE NEGATIVE (NEGATIVE); COCAINE METABOLITE URINE NEGATIVE (NEGATIVE); METHADONE URINE NEGATIVE (NEGATIVE); OPIATES URINE NEGATIVE (NEGATIVE); PHENCYCLIDINE URINE NEGATIVE (NEGATIVE)
[2019-07-13 22:32] LABS: ACETAMINOPHEN LEVEL < 2.0 UG/ML (10.0-30.0); ALBUMIN 3.9 GM/DL (3.2-5.2); ALT/SGPT 21 U/L (12-78); BILIRUBIN,DIRECT 0.1 MG/DL (0.0-0.2); BILIRUBIN,TOTAL 0.2 MG/DL (0.2-1.0); BLOOD UREA NITROGEN 4 MG/DL (7-18); CALCIUM LEVEL 8.7 MG/DL (8.5-10.1); CARBON DIOXIDE LEVEL 27 MEQ/L (21-32); CHLORIDE LEVEL 107 MEQ/L (98-107); CREATININE FOR GFR 0.84 MG/DL (0.55-1.30); ETHYL ALCOHOL (ETHANOL) 0.209 % (0.000-0.010); GLOMERULAR FILTRATION RATE > 60.0 (>60); GLUCOSE, FASTING 101 MG/DL (70-100); POTASSIUM SERUM 3.3 MEQ/L (3.5-5.1); SALICYLATE LEVEL 5.2 MG/DL (5.0-30.0); SODIUM LEVEL 141 MEQ/L (136-145); TOTAL PROTEIN 7.2 GM/DL (6.4-8.2)
[2019-07-13] MEDS ORDERED: NICOTINE 21MG/24HR 1 EA TRANSDERMAL TD ONE (22:45)
[2019-07-14] MEDS ORDERED: RA M10TA PO (00:11)
[2019-07-14] MEDS ORDERED: GABA800T4 PO (00:11)
[2019-07-14] MEDS ORDERED: VENL150C43 PO (00:11)
[2019-07-14] MEDS ORDERED: MONT10TA2 PO (00:11)
[2019-07-14] MEDS ORDERED: VENL75CA47 PO (00:11)
[2019-07-14] MEDS ORDERED: VENL37.52 PO (00:11)
[2019-07-14] MEDS ORDERED: IBUPROFEN 600 MG TAB PO ONE (03:45)
[2019-07-14 05:53] VITALS: BP 130/79
== END 2019-07-14 06:34 | disposition home or self-care (01) ==
LOC: M ED 21:20
DX: F10.129 Alcohol abuse with intoxication, unspecified (principal); R45.89 Other symptoms and signs involving emotional state; F31.9 Bipolar disorder, unspecified; F43.10 Post-traumatic stress disorder, unspecified; Z88.8 Allergy status to other drugs, medicaments and biological substances; F32.9 Major depressive disorder, single episode, unspecified; F41.9 Anxiety disorder, unspecified
CPT/HCPCS: 80048; 80076; 80307; 84443; 84703; 85027; 99284; G0480

== ENCOUNTER 2019-10-11 15:25 | Inpatient (IN) | payer MEDICAID, OTHER ==
[~2019-10-11] VITALS: Ht 160 cm; Wt 81.6 kg
[~2019-10-11 15:25] MED LIST changes: +GABA800T4 PO; -MONT10TA2; -MONT10TA2 PO; +MONT10TA4; +MONT10TA4 PO; -OMEP-172 PO; +OMEP1CAP73 PO; +RA M10TA PO; +VENL37.52 PO; +VENL75CA47 PO
[2019-10-11] MEDS ORDERED: BANO25CA PO (15:33)
[2019-10-11] MEDS ORDERED: PRAZ1CAP PO (15:33)
[2019-10-11] MEDS ORDERED: CHAN1PAK11 PO (15:33)
[2019-10-11 16:02] LABS: HEMATOCRIT 44.1 % (36.0-47.0); HEMOGLOBIN 15.1 g/dl (12.0-15.5); MEAN CORPUSCULAR HEMOGLOBIN 30.9 pg (27.0-33.0); MEAN CORPUSCULAR HGB CONC 34.2 g/dl (32.0-36.5); MEAN CORPUSCULAR VOLUME 90.2 fl (80.0-96.0); PLATELET COUNT, AUTOMATED 222 10^3/uL (150-450); RED BLOOD COUNT 4.89 10^6/uL (4.00-5.40); WHITE BLOOD COUNT 11.5 10^3/uL (4.0-10.0)
[2019-10-11 16:32] LABS: AMPHETAMINES LEVEL URINE NEGATIVE (NEGATIVE); BARBITURATES URINE NEGATIVE (NEGATIVE); BENZODIAZEPINES URINE NEGATIVE (NEGATIVE); CANNABINOIDS URINE NEGATIVE (NEGATIVE); COCAINE METABOLITE URINE NEGATIVE (NEGATIVE); METHADONE URINE NEGATIVE (NEGATIVE); OPIATES URINE NEGATIVE (NEGATIVE); PHENCYCLIDINE URINE NEGATIVE (NEGATIVE)
[2019-10-11 16:46] LABS: ACETAMINOPHEN LEVEL < 2.0 UG/ML (10.0-30.0); ALBUMIN 3.8 GM/DL (3.2-5.2); ALT/SGPT 28 U/L (12-78); BILIRUBIN,DIRECT < 0.1 MG/DL (0.0-0.2); BILIRUBIN,TOTAL 0.2 MG/DL (0.2-1.0); BLOOD UREA NITROGEN 6 MG/DL (7-18); CALCIUM LEVEL 8.8 MG/DL (8.5-10.1); CARBON DIOXIDE LEVEL 29 MEQ/L (21-32); CHLORIDE LEVEL 109 MEQ/L (98-107); ETHYL ALCOHOL (ETHANOL) < 0.003 % (0.000-0.010); GLOMERULAR FILTRATION RATE > 60.0 (>60); GLUCOSE, FASTING 84 MG/DL (70-100); SALICYLATE LEVEL 5.7 MG/DL (5.0-30.0); SODIUM LEVEL 139 MEQ/L (136-145); TOTAL PROTEIN 6.9 GM/DL (6.4-8.2)
[2019-10-11 17:17] LABS: HCG, SERUM QUALITATIVE NEGATIVE (NEGATIVE)
[2019-10-11] MEDS ORDERED: MAALOX 30 ML SUSP *UDC PO PRN (19:45)
[2019-10-11] MEDS ORDERED: traZODone 50 MG TAB PO PRN (19:45)
[2019-10-11] MEDS ORDERED: MOM 30ML SUSPENSION UDC PO PRN (19:45)
[2019-10-11] MEDS ORDERED: ACETAMINOPHEN TAB 650MG DOSE (2X325MG) PO PRN (19:45)
[2019-10-11 20:47] VITALS: BP 146/78
[2019-10-11] MEDS ORDERED: SUMAtriptan SUCCINATE 25 MG TAB PO PRN (21:00)
[2019-10-11] MEDS: MONTELUKAST 10 MG TAB PO SCH (21:23)
[2019-10-11] MEDS: ZIPRASIDONE 20MG CAPSULE (GEODON) PO SCH (21:24)
[2019-10-11] MEDS: OMEPRAZOLE 20 MG CAP PO SCH (21:24)
[2019-10-11] MEDS: PRAZOSIN 1 MG CAP PO SCH (21:24)
[2019-10-11] MEDS ORDERED: NICOTINE 21MG/24HR 1 EA TRANSDERMAL TD ONE (21:30)
[2019-10-12 06:25] VITALS: BP 119/58
[2019-10-12] MEDS: NICOTINE 21MG/24HR 1 EA TRANSDERMAL TD SCH (08:02)
[2019-10-12] MEDS: VENLAFAXINE **XR** 75MG CAPSULE PO SCH (08:03)
[2019-10-12] MEDS: VENLAFAXINE **XR** 37.5 MG CAPSULE PO SCH (08:03)
[2019-10-12] MEDS: OMEPRAZOLE 20 MG CAP PO SCH ×2 (08:03→20:25)
[2019-10-12] MEDS ORDERED: VENLAFAXINE **XR** 75MG CAPSULE PO SCH (09:00)
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
--- NOTE | 2019-10-12 12:16 | HPEPDOC ---
General Date of Admission Oct 11, 2019 at 19:41 Date of Service: Oct 12, 2019 Chief Complaint The patient is a 33-year-old female admitted with a reason for visit of Ptsd,Bipolar Disorder. Source: Patient Exam Limitations: No limitations Associated Symptoms: Denies Symptoms History of Present Illness Ms. Hutchinson is a 33-year-old female who was admitted to the behavioral health unit following attempted suicide by overdose. Patient reported that she recently started taking Chantix and she thinks this is the reason. Dad her de pression worsened. However, she also reported that she recently discovered that her partner is engaged to someone else. Patient reported that she took several gabapentin (cannot remember how many) and vomited right away. She has denied any adverse symptoms from overdosing on gabapentin. Patient does have a history of suicidal attempt, however, she denies any SI/HI at this time. Patient denied any chronic or new medical issues. Home Medications Scheduled Diphenhydramine HCl (Banophen) 25 Mg Capsule, 25 MG PO QHS, (Reported) Gabapentin (Gabapentin) 800 Mg Tablet, 800 MG PO BID, (Reported) Melatonin (Melatonin) 10 Mg Tablet, 20 MG PO QHS, (Reported) Montelukast Sodium (Montelukast Sodium) 10 Mg Tablet, 10 MG PO QHS, (Reported) Omeprazole (Omeprazole) 20 Mg Cap, 20 MG PO BID, (Reported) Prazosin Hcl (Prazosin HCl) 1 Mg Capsule, 1 MG PO QHS, (Reported) Varenicline Tartrate (Chantix) 1 Each Tab.ds.pk, 1 TAB PO ASDIRECTED, (Reported) Venlafaxine HCl (Venlafaxine HCl ER) 37.5 Mg Cap.er.24h, 37.5 MG PO DAILY, (R eported) TOTAL DOSE OF 262.5MG Venlafaxine HCl (Venlafaxine HCl ER) 75 Mg Cap.er.24h, 75 MG PO DAILY, (Reported) TOTAL DOSE OF 262.5MG Venlafaxine HCl (Venlafaxine HCl ER) 150 Mg Cap.er.24h, 150 MG PO DAILY, (Reported) TOTAL DOSE OF 262.5MG Ziprasidone HCl (Ziprasidone HCl) 20 Mg Cap, 20 MG PO QHS, (Reported) Scheduled PRN Sumatriptan Succinate (Imitrex) 50 Mg Tablet, 50 MG PO BID PRN for MIGRAINE, (Reported) Allergies Coded Allergies: furazolidone (Verified Allergy, Severe, hives/throat swelling, 05/13/19) Past Medical History Medical History Depression/anxiety PTSD Suicidal ideation/attempt Surgical History Remote history of adenectomy Family History Significant Family History: Diabetes (mother, father) Social History * Smoker: current smoker, cigarettes (more than 1 pack per day) Alcohol: rarely Drugs: marijuana A-FIB/CHADSVASC A-FIB History Current/History of A-Fib/PAF?: No Current PO Anticoag Therapy: No Review of Systems Constitutional: Denies: Chills, Fever, Night Sweats Eyes: Denies: Pain ENT: Denies: Head Aches Skin: Denies: Rash Pulmonary: Denies: Dyspnea, Cough Cardiovascular: Denies: Chest Pain, Palpitations Gastrointestinal: Denies: Nausea, Vomiting, Abdominal Pain, Diarrhea, Constipation Genitourinary: Denies: Dysuria Hematologic: Denies: Bruising Musculoskeletal: Denies: Neck Pain, Back Pain, Joint Pain, Muscle Pain, Spasms Neurological: Denies: Weakness, Numbness Psych: Reports: Thoughts of Self Harm; Denies: Depression, Thoughts of Harming Other Physical Examination General Exam: Positive: Alert, No Acute Distress Eye Exam: Positive: PERRLA, Conjunctiva & lids normal, EOMI; Negative: Sclera icteric ENT Exam: Positive: Atraumatic, Mucous membr. moist/pink, Pharynx Normal Neck Exam: Positive: Supple; Negative: thyromegaly Chest Exam: Positive: Clear to auscultation, Normal air movement Heart Exam: Positive: Rate Normal, Regular Rhythm, Normal S1, Normal S2; Negative: Murmurs, Rubs Telemetry: Positive: No significant arrhythmia Abdomen Exam: Positive: Normal bowel sounds, Soft; Negative: Tenderness Extremity Exam: Positive: Normal pulses; Negative: Clubbing, Cyanosis, Edema Skin Exam: Positive: Nl turgor and temperature Neuro Exam: Positive: Normal Gait, Normal Speech, Strength at 5/5 X4 ext, Cranial Nerves 3-12 NL Psych Exam: Positive: Mood NL Vital Signs Vital Signs Date Time Temp Pulse Resp B/P (MAP) Pulse Ox O2 Delivery O2 Flow Rate FiO2 10/12/19 07:54 Room Air 10/12/19 06:25 97.5 75 16 119/58 (78) 10/11/19 20:47 94 Laboratory Data Labs 24H Laboratory Tests 2 10/11/19 15:51: Nucleated Red Blood Cells % (auto) 0.0, Anion Gap 1L, Glomerular Filtration Rate > 60.0, Calcium Level 8.8, Total Bilirubin 0.2, Direct Bilirubin < 0.1, Aspartate Amino Transf (AST/SGOT) 14, Alanine Aminotransferase (ALT/SGPT) 28, Alkaline Phosphatase 59, Total Protein 6.9, Albumin 3.8, Albumin/Globulin Ratio 1.23, Thyroid Stimulating Hormone (TSH) 1.100, Human Chorionic Gonadotropin, Qual NEGATIVE, Salicylates Level 5.7, Urine Opiates Screen NEGATIVE, Urine Methadone Screen NEGATIVE, Acetaminophen Level < 2.0L, Urine Barbiturates Screen NEGATIVE, Urine Phencyclidine Screen NEGATIVE, Urine Amphetamines Screen NEGATIVE, Urine Benzodiazepines Screen NEGATIVE, Urine Cocaine Metabolite Screen NEGATIVE, Urine Cannabinoids Screen NEGATIVE, Ethyl Alcohol Level < 0.003 CBC/BMP Laboratory Tests 10/11/19 15:51 Assessment/Plan Ms. Hutchinson is a 33-year-old female who was admitted to the behavioral health unit following attempted suicide by overdose. Patient reported that she recently started taking Chantix and she thinks this is the reason. Dad her depression worsened. However, she also reported that she recently discovered that her partner is engaged to someone else. Patient reported that she took several gabapentin (cannot remember how many) and vomited right away. She has denied any adverse symptoms from overdosing on gabapentin. Patient does have a history of suicidal attempt, however, she denies any SI/HI at this time. Patient denied any chronic or new medical issues. #1. Depression/anxiety With suicidal attempt. Management per psychiatry #2. Recent overdose with gabapentin. Reportedly vomited right away. Medically screened in the ED, labs within normal limits. Currently asymptomatic. No indication for acute intervention Medicine will sign off on this patient at this time. Please feel free to reconsult as needed. Plan / VTE VTE Prophylaxis Ordered?: No CHARLIE SHIN PA-C Oct 12, 2019 12:16
[2019-10-12 16:03] VITALS: BP 128/74
[2019-10-12 20:25] VITALS: BP 128/74
[2019-10-12] MEDS: PRAZOSIN 1 MG CAP PO SCH (20:25)
[2019-10-12] MEDS: MONTELUKAST 10 MG TAB PO SCH (20:25)
[2019-10-12] MEDS: ZIPRASIDONE 20MG CAPSULE (GEODON) PO SCH (20:25)
[2019-10-12] MEDS ORDERED: diphenhydrAMINE 25 MG CAP PO SCH (21:00)
[2019-10-12] MEDS ORDERED: RAMELTEON 8 MG TAB (ROZEREM) PO SCH (21:00)
[2019-10-13 06:30] VITALS: BP 127/72
[2019-10-13] MEDS: OMEPRAZOLE 20 MG CAP PO SCH (08:06)
[2019-10-13] MEDS: VENLAFAXINE **XR** 37.5 MG CAPSULE PO SCH (08:07)
[2019-10-13] MEDS: VENLAFAXINE **XR** 75MG CAPSULE PO SCH (08:08)
[2019-10-13] MEDS: NICOTINE 21MG/24HR 1 EA TRANSDERMAL TD SCH (09:11)
[2019-10-13] MEDS ORDERED: NICO21PAT TD (11:05)
--- NOTE | 2019-10-13 11:08 | MHDSPDOC ---
[facility] Discharge Summary Discharge Summary DATE OF ADMISSION: Oct 11, 2019 at 19:41 DATE OF DISCHARGE: 10/13/19 Discharge Melba Hutchinson MRN: [id number] Date of : N/A Date of Service: 10/13/2019 Diagnoses Substance/unspecified depression. History of PTSD, likely chronic. Cluster B personality traits. History of Present Illness The patient is a 33-year-old woman who has multiple presentations to our inpatient unit, last admitted in 2018, presents after becoming upset and irritable. After recently starting Chantix, she reports that she had found out a girlfriend of hers was cheating on her and she became fairly upset and attempted to overdose on gabapentin. After taking a few tablets, she induced vomiting and subsequently discontinued. She then felt that she was still suicidal and came in and was admitted abundance of caution. The patient reports the last several days, she has become increasingly more irritable, depressed and cedeno. After starting Chantix, she reported that prior to this she was in her normal state of health and that she had gotten worse on the medications. She reported that she had stopped it, although her suicidal ideation had returned. She reports that she has had multiple troubles with various girlfriends. Consultants Involved Hospitalist/PCP screening Treatment and Progress On The Unit The patient was admitted to the inpatient unit and resumed on her home medications. She reported a low lethality overdose that she immediately sought care for. However, she was referred by her therapist several days after the reported overdose for screening and admitted out of an abundance of caution. She was observed for 48 hours where she was well behaved, friendly and amenable with no suicidal ideation noted from any provider. The patient did well, attended groups and was discharged without incident. Discharge Assessment 33-year-old woman with likely adjustment versus substance-induced secondary to Chantix, depression. The patient at the time of discharge did not meet criteria for involuntary admission/extension due to having a normal mental status exam, fair insight into the situation, They are engaged in the discharge process, as well as being friendly and amenable in behavioral control and havent been engaging in any observed concerning behavior or ideation recently. They decline voluntary extension/admission at this time and must be discharged in good zahida, as Im unable to make a case for holding the patient against their will. They may have historical risk factors of admissions and other interactions with psychiatry however, those are not modifiable from a clinical perspective. The patient will need to be discharged in good zahida. Mental Status Examination General: Well dressed with good hygiene Speech: Spontaneous and fluid Thought processes: Linear and logical MSK: Smooth and coordinated gait, no signs of tremors or involuntary orofacial m ovements Thought content: Future orientated Abstract reasoning, and computation: Intact Description of associations: Intact Description of abnormal or psychotic thoughts: Denies any suicidal or homicidal ideation. Denies any auditory or visual hallucinations. Does not appear to be responding to internal stimuli. Does not appear to be endorsing any bizarre or paranoid ideation. Judgment: fair Insight: fair Orientation: Alert and orientated 3 Cognition: Grossly normal Recent and remote memory: Intact Attention span and concentration: Intact Fund of knowledge: Adequate Mood: "okay" Affect: Euthymic with a full range Follow Up The social work team worked during the predischarge meeting in order to evaluate for further issues of lethality address them fully before discharge. They worked on safety planning with the patient's family members in order to ensure that the patient will have a safe and effective discharge. Time Spent The amount of time spent in the coordination of care for this patient was approximately 40 minutes. Thursday Vital Signs/I&Os Vital Signs Date Time Temp Pulse Resp B/P (MAP) Pulse Ox O2 Delivery O2 Flow Rate FiO2 10/13/19 06:30 96.9 73 16 127/72 (90) 10/12/19 07:54 Room Air 10/11/19 20:47 94 Medications Scheduled Diphenhydramine HCl (Banophen) 25 Mg Capsule, 25 MG PO QHS, (Reported) Gabapentin (Gabapentin) 800 Mg Tablet, 800 MG PO BID, (Reported) Melatonin (Melatonin) 10 Mg Tablet, 20 MG PO QHS, (Reported) Montelukast Sodium (Montelukast Sodium) 10 Mg Tablet, 10 MG PO QHS, (Reported) Nicotine (Nicotine Patch) 21 Mg Patch.td24, 1 PATCH TD DAILY for tobacco for 30 Days, #30 Omeprazole (Omeprazole) 20 Mg Cap, 20 MG PO BID, (Reported) Prazosin Hcl (Prazosin HCl) 1 Mg Capsule, 1 MG PO QHS, (Reported) Varenicline Tartrate (Chantix) 1 Each Tab.ds.pk, 1 TAB PO ASDIRECTED, (Reported) Venlafaxine HCl (Venlafaxine HCl ER) 37.5 Mg Cap.er.24h, 37.5 MG PO DAILY, (Reported) TOTAL DOSE OF 262.5MG Venlafaxine HCl (Venlafaxine HCl ER) 75 Mg Cap.er.24h, 75 MG PO DAILY, (Reported) TOTAL DOSE OF 262.5MG Venlafaxine HCl (Venlafaxine HCl ER) 150 Mg Cap.er.24h, 150 MG PO DAILY, (Repor atif) TOTAL DOSE OF 262.5MG Ziprasidone HCl (Ziprasidone HCl) 20 Mg Cap, 20 MG PO QHS, (Reported) Scheduled PRN Sumatriptan Succinate (Imitrex) 50 Mg Tablet, 50 MG PO BID PRN for MIGRAINE, (Reported) Allergies Coded Allergies: furazolidone (Verified Allergy, Severe, hives/throat swelling, 05/13/19) MEERALD SALEH DO Oct 13, 2019 11:08
== END 2019-10-13 12:00 | disposition home or self-care (01) | DRG 754 ==
LOC: M ED 15:25 → M ED INP 19:41 → M PSY 20:19
PROVIDERS: ADMIT Psychiatry & Neurology Psychiatry; ATTEND Psychiatry & Neurology Addiction Medicine
DX: F32.9 Major depressive disorder, single episode, unspecified (principal); F60.89 Other specific personality disorders; F43.12 Post-traumatic stress disorder, chronic; Z79.899 Other long term (current) drug therapy; Z88.8 Allergy status to other drugs, medicaments and biological substances; Z81.4 Family history of other substance abuse and dependence; Z62.810 Personal history of physical and sexual abuse in childhood; G43.909 Migraine, unspecified, not intractable, without status migrainosus; M79.7 Fibromyalgia; T44.905A Adverse effect of unspecified drugs primarily affecting the autonomic nervous system, initial encounter

== ENCOUNTER → 2020-12-05 | Outpatient (CLI) | payer OTHER ==
[~2020-12-05] MED LIST changes: +CHAN1PAK11 PO; +DIPH-319 PO; +GABA-282 PO; +GABA-283 PO; -GABA-843 PO; -GABA-845 PO; +MONT10TA10; +MONT10TA10 PO; -MONT10TA4; -MONT10TA4 PO; +PRAZ1CAP PO
--- NOTE | 2020-12-05 09:26 | REPVR ---
PROCEDURE INFORMATION: Exam: CT Maxillofacial Without Contrast, Sinus Exam date and time: 12/05/2020 9:10 AM Age: 35 years old Clinical indication: Sinusitis; Type not specified; Additional info: Pansinusitis TECHNIQUE: Imaging protocol: CT Maxillofacial without contrast. Focus on the sinuses. Radiation optimization: All CT scans at this facility use at least one of these dose optimization techniques: automated exposure control; mA and/or kV adjustment per patient size (includes targeted exams where dose is matched to clinical indication); or iterative reconstruction. COMPARISON: No relevant prior studies available. FINDINGS: Frontal sinuses: No significant mucosal disease. No air-fluid levels. Nasofrontal recesses are clear. Ethmoid air cells: No significant mucosal thickening. No air-fluid levels. Sphenoid sinuses: No significant mucosal disease. No air-fluid levels. Spheno-ethmoidal recesses are clear. Maxillary sinuses: No significant mucosal thickening. No air-fluid levels. Ostiomeatal units are patent. Nasal cavity/Septum: Nasal septum is mildly deviated to left superiorly and right inferiorly. There are small bilateral dl bullosa. Orbital cavity: Orbits are normal. Globes are unremarkable. Bones/joints: Unremarkable. Soft tissues: Unremarkable. Auditory system: Mastoid air cells and middle ear cavities are well developed and well aerated. IMPRESSION: Clear paranasal sinuses. Electronically signed by: Marily Krishnan On 12/05/2020 09:25:34 AM
== END ==
LOC: M RAD 09:02
PROVIDERS: ATTEND Otolaryngology
DX: J01.40 Acute pansinusitis, unspecified (principal)

== ENCOUNTER 2021-11-14 12:34 | Day surgery (SDC) | payer OTHER ==
[~2021-11-14] VITALS: Ht 160 cm; Wt 87.7 kg
[~2021-11-14 12:34] MED LIST changes: +FAMO40TA3 PO; -LATU40TA PO; +LATU40TA2 PO; -LATU80TA PO; +LATU80TA2 PO; +LIDOCAINE 2% 100MG/5ML SDV (FOR ANES.) As Ordered ONE; +LORA-243 PO; -MONT10TA10; -MONT10TA10 PO; +MONT10TA97; +MONT10TA97 PO; +NS 1,000 ML IV ONE; +SERT-141 PO; +propofoL 200 MG/20 ML VIAL As Ordered ONE
[2021-11-14 15:46] VITALS: BP 121/72
== END 2021-11-14 15:46 | disposition home or self-care (01) ==
LOC: M OPP 12:34
PROVIDERS: ATTEND Internal Medicine Gastroenterology
DX: K21.9 Gastro-esophageal reflux disease without esophagitis (principal); K29.50 Unspecified chronic gastritis without bleeding; K58.9 Irritable bowel syndrome, unspecified; Z79.899 Other long term (current) drug therapy; Z88.8 Allergy status to other drugs, medicaments and biological substances; F17.210 Nicotine dependence, cigarettes, uncomplicated

== ENCOUNTER → 2022-03-10 | Outpatient (CLI) | payer OTHER ==
[~2022-03-10] MED LIST changes: -LIDOCAINE 2% 100MG/5ML SDV (FOR ANES.) As Ordered ONE; -NS 1,000 ML IV ONE; -propofoL 200 MG/20 ML VIAL As Ordered ONE
== END ==
LOC: M LABSMTC 10:49
PROVIDERS: ATTEND Anesthesiology
DX: Z01.812 Encounter for preprocedural laboratory examination (principal); Z20.822 Contact with and (suspected) exposure to COVID-19

== ENCOUNTER 2022-03-12 07:29 | Day surgery (SDC) | payer OTHER ==
[~2022-03-12] VITALS: Ht 160 cm; Wt 85.3 kg
[~2022-03-12 07:29] MED LIST changes: +AMPICILLIN SOD/SULBACTAM SOD 3 GM in D5W MINI-BAG PLUS 100 ML IV ONE; +CelecoXIB 400 MG CAP PO ONE; +LR 1,000 ML IV SCH
[2022-03-12] MEDS ORDERED: IBUP1TAB7 PO (07:59)
[2022-03-12] MEDS ORDERED: BUPIVACAINE HCL 0.25% 30ML VIAL As Ordered ONE (08:12)
[2022-03-12] MEDS ORDERED: LIDOCAINE 1% SDV 30ML VIAL As Ordered ONE (08:12)
[2022-03-12] MEDS ORDERED: dexameTHASONE 4 MG/ML 1ML VIAL (J1100 PER 1MG) As Ordered ONE ×2 (10:03→10:11)
[2022-03-12] MEDS ORDERED: INDOCYANINE GREEN 25MG VIAL (IC-GREEN) As Ordered ONE (10:04)
[2022-03-12] MEDS ORDERED: MIDAZOLAM INJ 2MG/2ML VIAL (J2250 PER 1MG) As Ordered ONE (10:11)
[2022-03-12] MEDS ORDERED: ACETAMINOPHEN 1000MG 100ML IV BTL (OFIRMEV) (J0131 PER 10MG) As Ordered ONE (10:11)
[2022-03-12] MEDS ORDERED: fentaNYL 100 MCG/2 ML INJECTION As Ordered ONE ×2 (10:11→10:59)
[2022-03-12] MEDS ORDERED: LIDOCAINE 2% 100MG/5ML SDV (FOR ANES.) As Ordered ONE (10:11)
[2022-03-12] MEDS ORDERED: propofoL 200 MG/20 ML VIAL As Ordered ONE (10:11)
[2022-03-12] MEDS ORDERED: ROCURONIUM BROMIDE 50 MG/5 ML VIAL As Ordered ONE (10:11)
[2022-03-12] MEDS ORDERED: SUGAMMADEX SODIUM 500 MG/5 ML VIAL (BRIDION) As Ordered ONE (10:28)
[2022-03-12] MEDS ORDERED: ONDANSETRON 4MG 2ML VIAL As Ordered ONE (11:00)
[2022-03-12] MEDS ORDERED: KETOROLAC 60MG 2ML VIAL As Ordered ONE (11:07)
[2022-03-12] MEDS ORDERED: ONDANSETRON 4MG 2ML VIAL IV PRN (11:20)
[2022-03-12] MEDS ORDERED: MEPERIDINE INJ 25 MG/ML VIAL (J2175) IV PRN (11:20)
[2022-03-12] MEDS ORDERED: oxyCODONE 5MG TAB PO PRN (11:20)
[2022-03-12] MEDS ORDERED: fentaNYL 100 MCG/2 ML INJECTION IV PRN (11:20)
[2022-03-12] MEDS ORDERED: LR 1,000 ML IV SCH (11:20)
[2022-03-12] MEDS ORDERED: KETOROLAC 30 MG/ML 1ML VIAL IV PRN (11:40)
[2022-03-12] MEDS ORDERED: NORCO, ANEXSIA 5/325MG TABLET (HYDROcodone/ACETAMINOPHEN) PO PRN ×2 (11:45)
[2022-03-12 12:45] VITALS: BP 114/70
== END 2022-03-12 13:15 | disposition home or self-care (01) ==
LOC: M SDC 07:29
PROVIDERS: ATTEND Surgery
DX: K80.12 Calculus of gallbladder with acute and chronic cholecystitis without obstruction (principal); F32.A Depression, unspecified; F31.9 Bipolar disorder, unspecified; F41.9 Anxiety disorder, unspecified; F43.10 Post-traumatic stress disorder, unspecified; G43.909 Migraine, unspecified, not intractable, without status migrainosus; K21.9 Gastro-esophageal reflux disease without esophagitis; K58.9 Irritable bowel syndrome, unspecified; M79.7 Fibromyalgia; M19.90 Unspecified osteoarthritis, unspecified site; R06.83 Snoring; Z79.899 Other long term (current) drug therapy; Z88.8 Allergy status to other drugs, medicaments and biological substances; F17.210 Nicotine dependence, cigarettes, uncomplicated
CPT/HCPCS: 47563; 64488; 81025; 88304; J0131; J0295; J1100; J1885; J2250; J2405; J3010; Q9968; S2900

== ENCOUNTER → 2022-09-08 | Outpatient (CLI) | payer OTHER ==
[~2022-09-08] MED LIST changes: -AMPICILLIN SOD/SULBACTAM SOD 3 GM in D5W MINI-BAG PLUS 100 ML IV ONE; -CelecoXIB 400 MG CAP PO ONE; +IBUP1TAB7 PO; -LR 1,000 ML IV SCH
== END ==
LOC: M PAIN 08:00
PROVIDERS: ATTEND Nurse Practitioner Family
DX: M54.50 Low back pain, unspecified (principal); K21.9 Gastro-esophageal reflux disease without esophagitis; G43.909 Migraine, unspecified, not intractable, without status migrainosus; M79.7 Fibromyalgia; F17.210 Nicotine dependence, cigarettes, uncomplicated; Z86.59 Personal history of other mental and behavioral disorders; Z79.899 Other long term (current) drug therapy

== ENCOUNTER → 2022-09-29 | Outpatient (REF) | payer OTHER ==
[~2022-09-29] MED LIST changes: -MELA10TA PO; +MELATONIN CR10 MG PO; +MONT-5 PO; -SING10TA32 PO
== END ==
LOC: M LAB REF 09:31
PROVIDERS: ATTEND Physician Assistant Medical
DX: K58.2 Mixed irritable bowel syndrome (principal)

== ENCOUNTER → 2022-09-30 | Outpatient (CLI) | payer OTHER | LOC: M PAIN 10:30 | PROVIDERS: ATTEND Nurse Practitioner Family | DX: M51.16 Intervertebral disc disorders with radiculopathy, lumbar region (principal); G89.29 Other chronic pain; K21.9 Gastro-esophageal reflux disease without esophagitis; G43.909 Migraine, unspecified, not intractable, without status migrainosus; M79.7 Fibromyalgia; F17.210 Nicotine dependence, cigarettes, uncomplicated; Z86.59 Personal history of other mental and behavioral disorders; Z79.899 Other long term (current) drug therapy ==

== ENCOUNTER → 2022-11-28 | Outpatient (CLI) | payer OTHER ==
[~2022-11-28] MED LIST changes: +CYMB1CAP5 PO; +E-Z-GAS II EFFERVESCENT PACKET (SODIUM BICARB./CITRIC ACID/SIMETHICONE) As Ordered ONE; +E-Z-HD 98% w/w 340GM SUSP BTL As Ordered ONE; +E-Z-PAQUE 96% w/w SUSP 176GM BTL As Ordered ONE; +MELA10CA PO
== END ==
LOC: M RAD 09:59
PROVIDERS: ATTEND Physician Assistant Medical
DX: R13.10 Dysphagia, unspecified (principal)

== ENCOUNTER 2022-12-08 11:55 | Day surgery (SDC) | payer OTHER ==
[~2022-12-08] VITALS: Ht 160 cm; Wt 90.5 kg
[~2022-12-08 11:55] MED LIST changes: -E-Z-GAS II EFFERVESCENT PACKET (SODIUM BICARB./CITRIC ACID/SIMETHICONE) As Ordered ONE; -E-Z-HD 98% w/w 340GM SUSP BTL As Ordered ONE; -E-Z-PAQUE 96% w/w SUSP 176GM BTL As Ordered ONE
[2022-12-08] MEDS ORDERED: propofoL 200 MG/20 ML VIAL As Ordered ONE ×2 (12:42→13:18)
[2022-12-08] MEDS ORDERED: LIDOCAINE 2% 100MG/5ML SDV (FOR ANES.) As Ordered ONE (12:42)
[2022-12-08] MEDS ORDERED: ONDANSETRON 4MG 2ML VIAL As Ordered ONE (12:42)
[2022-12-08] MEDS ORDERED: fentaNYL 100 MCG/2 ML INJECTION As Ordered ONE (12:42)
[2022-12-08 14:08] VITALS: BP 120/76
== END 2022-12-08 14:17 | disposition home or self-care (01) ==
LOC: M OPP 11:55
PROVIDERS: ATTEND Internal Medicine Gastroenterology
DX: K64.8 Other hemorrhoids (principal); K62.1 Rectal polyp; R19.7 Diarrhea, unspecified; Z87.891 Personal history of nicotine dependence; Z79.1 Long term (current) use of non-steroidal anti-inflammatories (NSAID); Z79.891 Long term (current) use of opiate analgesic; Z79.899 Other long term (current) drug therapy; Z88.1 Allergy status to other antibiotic agents
CPT/HCPCS: 45380; 45385; 88305; 91035; J2405; J3010

== ENCOUNTER → 2022-12-09 | Outpatient (CLI) | payer OTHER | LOC: M PAIN 10:15 | PROVIDERS: ATTEND Nurse Practitioner Family | DX: M79.10 Myalgia, unspecified site (principal); G89.29 Other chronic pain; K21.9 Gastro-esophageal reflux disease without esophagitis; G43.909 Migraine, unspecified, not intractable, without status migrainosus; F17.210 Nicotine dependence, cigarettes, uncomplicated; Z86.59 Personal history of other mental and behavioral disorders; Z79.899 Other long term (current) drug therapy ==

== ENCOUNTER → 2023-01-29 | Outpatient (REF) | payer OTHER | LOC: M SFHCRHEU 13:27 | PROVIDERS: ATTEND Internal Medicine Rheumatology | DX: Z53.9 Procedure and treatment not carried out, unspecified reason (principal) ==

== ENCOUNTER → 2023-02-20 | Outpatient (CLI) | payer OTHER | LOC: M PAIN 08:15 | PROVIDERS: ATTEND Anesthesiology | DX: M51.16 Intervertebral disc disorders with radiculopathy, lumbar region (principal); G89.29 Other chronic pain; M53.3 Sacrococcygeal disorders, not elsewhere classified; F31.9 Bipolar disorder, unspecified; F41.9 Anxiety disorder, unspecified; K21.9 Gastro-esophageal reflux disease without esophagitis; J30.2 Other seasonal allergic rhinitis; G43.909 Migraine, unspecified, not intractable, without status migrainosus; M79.7 Fibromyalgia; K58.9 Irritable bowel syndrome, unspecified; M25.562 Pain in left knee; F17.210 Nicotine dependence, cigarettes, uncomplicated | CPT/HCPCS: 76000; G0463 ==

== ENCOUNTER → 2023-08-17 | Outpatient (CLI) | payer OTHER ==
[~2023-08-17] MED LIST changes: -DIPH-319 PO; +DIPH-429 PO; -GABA-283 PO; +GABA-284 PO
== END ==
LOC: M PAIN 10:15
PROVIDERS: ATTEND Nurse Practitioner Family
DX: M51.16 Intervertebral disc disorders with radiculopathy, lumbar region (principal); G89.29 Other chronic pain; K21.9 Gastro-esophageal reflux disease without esophagitis; G43.909 Migraine, unspecified, not intractable, without status migrainosus; M79.7 Fibromyalgia; F17.200 Nicotine dependence, unspecified, uncomplicated; Z79.899 Other long term (current) drug therapy

== ENCOUNTER → 2023-09-23 | Outpatient (CLI) | payer OTHER | LOC: M RAD 12:03 | PROVIDERS: ATTEND Physician Assistant Medical | DX: R19.7 Diarrhea, unspecified (principal) ==

== ENCOUNTER → 2023-12-01 | Outpatient (CLI) | payer OTHER ==
[~2023-12-01] MED LIST changes: +ISOVUE-M 300 61% 15ML VIAL As Ordered ONE; +LIDOCAINE 1% SDV 30ML VIAL As Ordered ONE; +NORCO, ANEXSIA 5/325MG TABLET (HYDROcodone/ACETAMINOPHEN) As Ordered ONE; +diazePAM 5MG TABLET As Ordered ONE; +diphenhydrAMINE 25MG CAP As Ordered ONE; +methylPREDNISolone SUSP 40MG/ML 1ML VIAL (DEPO MEDROL) As Ordered ONE
== END ==
LOC: M PAIN 08:30
PROVIDERS: ATTEND Anesthesiology
DX: M51.16 Intervertebral disc disorders with radiculopathy, lumbar region (principal); G89.29 Other chronic pain; M54.50 Low back pain, unspecified; F31.9 Bipolar disorder, unspecified; F41.9 Anxiety disorder, unspecified; G43.909 Migraine, unspecified, not intractable, without status migrainosus; M79.7 Fibromyalgia; K58.9 Irritable bowel syndrome, unspecified; M25.562 Pain in left knee; F17.290 Nicotine dependence, other tobacco product, uncomplicated; Z79.899 Other long term (current) drug therapy
CPT/HCPCS: 62323; J1010; Q9967

== ENCOUNTER → 2024-01-29 | Outpatient (CLI) | payer OTHER ==
[~2024-01-29] MED LIST changes: -ISOVUE-M 300 61% 15ML VIAL As Ordered ONE; -LIDOCAINE 1% SDV 30ML VIAL As Ordered ONE; -NORCO, ANEXSIA 5/325MG TABLET (HYDROcodone/ACETAMINOPHEN) As Ordered ONE; -diazePAM 5MG TABLET As Ordered ONE; -diphenhydrAMINE 25MG CAP As Ordered ONE; -methylPREDNISolone SUSP 40MG/ML 1ML VIAL (DEPO MEDROL) As Ordered ONE
== END ==
LOC: M PAIN 14:00
PROVIDERS: ATTEND Nurse Practitioner Family
DX: M51.16 Intervertebral disc disorders with radiculopathy, lumbar region (principal); G89.29 Other chronic pain; F31.9 Bipolar disorder, unspecified; K21.9 Gastro-esophageal reflux disease without esophagitis; F41.9 Anxiety disorder, unspecified; G43.909 Migraine, unspecified, not intractable, without status migrainosus; M79.7 Fibromyalgia; K58.9 Irritable bowel syndrome, unspecified; F17.200 Nicotine dependence, unspecified, uncomplicated; Z79.899 Other long term (current) drug therapy

== ENCOUNTER → 2024-03-01 | Outpatient (CLI) | payer OTHER ==
[~2024-03-01] MED LIST changes: +GABA-1635 PO; -GABA800T4 PO
== END ==
LOC: M PAIN 16:30
PROVIDERS: ATTEND Nurse Practitioner Family
DX: M51.16 Intervertebral disc disorders with radiculopathy, lumbar region (principal); G89.29 Other chronic pain; F31.9 Bipolar disorder, unspecified; F41.9 Anxiety disorder, unspecified; K21.9 Gastro-esophageal reflux disease without esophagitis; G43.909 Migraine, unspecified, not intractable, without status migrainosus; M79.7 Fibromyalgia; K58.9 Irritable bowel syndrome, unspecified; G90.512 Complex regional pain syndrome I of left upper limb; Z87.891 Personal history of nicotine dependence; Z79.899 Other long term (current) drug therapy

== ENCOUNTER → 2024-04-28 | Outpatient (CLI) | payer OTHER ==
[~2024-04-28] MED LIST changes: +GABA-1172 PO; -GABA-282 PO; +ISOVUE-M 300 61% 15ML VIAL As Ordered ONE; +LIDOCAINE 1% SDV 30ML VIAL As Ordered ONE; +NORCO, ANEXSIA 5/325MG TABLET (HYDROcodone/ACETAMINOPHEN) As Ordered ONE; +dexAMETHasone 10MG/1ML VIAL PRES.FREE As Ordered ONE; +diazePAM 5MG TABLET As Ordered ONE
== END ==
LOC: M PAIN 11:00
PROVIDERS: ATTEND Anesthesiology
DX: M51.16 Intervertebral disc disorders with radiculopathy, lumbar region (principal); G89.29 Other chronic pain; F31.9 Bipolar disorder, unspecified; F41.9 Anxiety disorder, unspecified; K21.9 Gastro-esophageal reflux disease without esophagitis; G43.909 Migraine, unspecified, not intractable, without status migrainosus; M79.7 Fibromyalgia; K58.9 Irritable bowel syndrome, unspecified; Z87.891 Personal history of nicotine dependence; Z79.899 Other long term (current) drug therapy
CPT/HCPCS: 62323; J1100; Q9967

== ENCOUNTER → 2024-06-02 | Outpatient (CLI) | payer OTHER ==
[~2024-06-02] MED LIST changes: -ISOVUE-M 300 61% 15ML VIAL As Ordered ONE; -LIDOCAINE 1% SDV 30ML VIAL As Ordered ONE; -NORCO, ANEXSIA 5/325MG TABLET (HYDROcodone/ACETAMINOPHEN) As Ordered ONE; -dexAMETHasone 10MG/1ML VIAL PRES.FREE As Ordered ONE; -diazePAM 5MG TABLET As Ordered ONE
== END ==
LOC: M PAIN 11:00
PROVIDERS: ATTEND Nurse Practitioner Family
DX: M79.10 Myalgia, unspecified site (principal); M51.16 Intervertebral disc disorders with radiculopathy, lumbar region; G89.29 Other chronic pain; F17.290 Nicotine dependence, other tobacco product, uncomplicated; Z79.899 Other long term (current) drug therapy

== ENCOUNTER → 2024-07-21 | Outpatient (REF) | payer OTHER | LOC: M LAB REF 11:58 | PROVIDERS: ATTEND Physician Assistant Medical | DX: B34.9 Viral infection, unspecified (principal) ==

== ENCOUNTER → 2024-08-11 | Outpatient (CLI) | payer OTHER ==
[~2024-08-11] MED LIST changes: +TRIAMCINOLONE ACETONIDE SUSP 40MG/ML 1ML VIAL As Ordered ONE
== END ==
LOC: M PAIN 08:00
PROVIDERS: ATTEND Anesthesiology
DX: M79.18 Myalgia, other site (principal); G89.29 Other chronic pain; M51.16 Intervertebral disc disorders with radiculopathy, lumbar region; F17.290 Nicotine dependence, other tobacco product, uncomplicated; K21.9 Gastro-esophageal reflux disease without esophagitis; G47.33 Obstructive sleep apnea (adult) (pediatric); Z79.899 Other long term (current) drug therapy
CPT/HCPCS: 20552; J0665; J3301

== ENCOUNTER → 2024-11-14 | Outpatient (REF) | payer OTHER ==
[~2024-11-14] MED LIST changes: -TRIAMCINOLONE ACETONIDE SUSP 40MG/ML 1ML VIAL As Ordered ONE
[2024-11-14 14:33] LABS: APPEARANCE, URINE CLEAR (CLEAR); BACTERIA, URINE AUTO NEGATIVE (NEGATIVE); BILIRUBIN, URINE AUTO NEGATIVE (NEGATIVE); BLOOD, URINE BLOOD 2+ (NEGATIVE); COLOR, URINE STRAW (YELLOW); GLUCOSE, URINE (UA) AUTO NEGATIVE (NEGATIVE); KETONE, URINE AUTO NEGATIVE (NEGATIVE); LEUKOCYTE ESTERASE, URINE AUTO NEGATIVE (NEGATIVE); NITRITE, URINE AUTO NEGATIVE (NEGATIVE); PROTEIN, URINE AUTO NEGATIVE (NEGATIVE); RBC, URINE AUTO 0 /HPF (0-3); SPECIFIC GRAVITY URINE AUTO 1.004 (1.002-1.035); SQUAMOUS EPITHELIAL CELL UR AU 1 /HPF (0-6); UROBILINOGEN, URINE AUTO 0.2 mg/dL (0.0-2.0); WBC, URINE AUTO 1 /HPF (0-3)
== END ==
LOC: M LAB REF 11:57
PROVIDERS: ATTEND Physician Assistant Medical
DX: N39.0 Urinary tract infection, site not specified (principal); J02.9 Acute pharyngitis, unspecified; B34.9 Viral infection, unspecified